=== PATIENT | male | born 1995 | race Caucasian/White ===

== ENCOUNTER 2019-11-02 01:57 | Emergency (ER) | payer BC ==
[~2019-11-02] VITALS: Ht 180.3 cm; Wt 84.1 kg
[2019-11-02 01:58] VITALS: TEMP 98.5
[2019-11-02 03:44] VITALS: BP 149/96; PULSE 120
== END 2019-11-02 03:44 | disposition home or self-care (01) ==
LOC: COL.ER 01:57
DX: S01.01XA Laceration without foreign body of scalp, initial encounter (principal); F10.129 Alcohol abuse with intoxication, unspecified; Z23 Encounter for immunization; W18.30XA Fall on same level, unspecified, initial encounter; Y92.009 Unspecified place in unspecified non-institutional (private) residence as the place of occurrence of the external cause
CPT/HCPCS: J2405; J7030

== ENCOUNTER → 2019-11-07 | Outpatient (CLI) | payer BC ==
[2019-11-07 13:44] VITALS: BP 154/93; PULSE 88; TEMP 97.9
== END ==
LOC: COL.ER 13:18
DX: S01.01XD Laceration without foreign body of scalp, subsequent encounter (principal); X58.XXXD Exposure to other specified factors, subsequent encounter

== ENCOUNTER → 2020-09-15 | Outpatient (CLI) | payer BC | LOC: ZCOL.LAB 20:59 | DX: Z20.828 Contact with and (suspected) exposure to other viral communicable diseases (principal) ==